=== PATIENT | female | born 1985 | race African-American/Black ===

== ENCOUNTER 2016-04-06 20:28 | Emergency (ER) | payer SELFPAY ==
[~2016-04-06] VITALS: Ht 157.5 cm; Wt 73.0 kg
[2016-04-06 20:49] VITALS: BP 124/94
== END 2016-04-06 22:34 | disposition home or self-care (01) ==
LOC: ER 20:31
DX: G89.29 Other chronic pain (principal); M54.9 Dorsalgia, unspecified; M79.1 Myalgia; Z87.81 Personal history of (healed) traumatic fracture

== ENCOUNTER 2017-06-03 10:26 | Emergency (ER) | payer MEDICAID ==
[~2017-06-03] VITALS: Ht 157.5 cm; Wt 79.4 kg
[2017-06-03 11:00] VITALS: BP 129/86
[2017-06-03] MEDS ORDERED: KETOROLAC TROMETH 60MG/2ML VIAL IM ONE (11:15)
== END 2017-06-03 11:48 | disposition home or self-care (01) ==
LOC: ER 10:26
DX: G89.29 Other chronic pain (principal); M54.6 Pain in thoracic spine; Z76.0 Encounter for issue of repeat prescription
CPT/HCPCS: 72070; 96372; 99284; J1885

== ENCOUNTER 2017-06-08 11:37 | Emergency (ER) | payer MEDICAID ==
[~2017-06-08] VITALS: Ht 157.5 cm; Wt 79.4 kg
[2017-06-08 12:19] VITALS: BP 147/81
[2017-06-08] MEDS ORDERED: KETOROLAC TROMETH 60MG/2ML VIAL IM ONE (13:15)
== END 2017-06-08 13:39 | disposition home or self-care (01) ==
LOC: ER 11:37
DX: G89.29 Other chronic pain (principal); M54.6 Pain in thoracic spine; Z76.0 Encounter for issue of repeat prescription
CPT/HCPCS: 96372; 99283; J1885

== ENCOUNTER 2017-07-01 16:47 | Emergency (ER) | payer MEDICAID ==
[~2017-07-01] VITALS: Ht 157.5 cm; Wt 77.6 kg
[2017-07-01] MEDS ORDERED: HYDROcodone-ACET 5/325MG TAB PO ONE (19:30)
[2017-07-01 19:58] VITALS: BP 152/70
== END 2017-07-01 21:10 | disposition home or self-care (01) ==
LOC: ER 16:57
DX: G89.29 Other chronic pain (principal); M54.6 Pain in thoracic spine
CPT/HCPCS: 81025

== ENCOUNTER 2017-08-14 11:38 | Emergency (ER) | payer MEDICAID ==
[~2017-08-14] VITALS: Ht 157.5 cm; Wt 81.6 kg
[2017-08-14 11:52] VITALS: BP 122/80
== END 2017-08-14 14:19 | disposition home or self-care (01) ==
LOC: ER 11:38
DX: M54.6 Pain in thoracic spine (principal); G89.29 Other chronic pain

== ENCOUNTER 2018-04-04 13:57 | Emergency (ER) | payer MEDICAID, OTHER ==
[~2018-04-04] VITALS: Ht 157.5 cm; Wt 85.7 kg
[2018-04-04 15:08] VITALS: BP 106/78
== END 2018-04-04 15:19 | disposition home or self-care (01) ==
LOC: ER 14:02
DX: N76.0 Acute vaginitis (principal); B96.89 Other specified bacterial agents as the cause of diseases classified elsewhere